=== PATIENT | female | born 1980 | race Caucasian/White ===

== ENCOUNTER 2020-07-13 06:45 | Day surgery (SDC) | payer OTHER, BC ==
[2020-07-10 11:05] LABS: BASOPHILS 0.4 % (0-2); EOSINOPHILS 1.4 % (0-7); HEMATOCRIT 38.1 % (36.0-48.0); IMMATURE GRANULOCYTES 0.4 % (0-5); LYMPHOCYTE ABS# 1.66 10x3/uL (1.18-3.74); LYMPHOCYTES 19.6 % (15-50); MCH 29.1 pg (26.0-34.0); MCHC 34.1 g/dL (31.0-37.0); MCV 85.2 fL (80.0-100.0); MEAN PLATELET VOLUME 10.5 fL (7.4-10.4); MONOCYTES 6.3 % (2-11); NEUTROPHIL ABS# 6.11 10x3/uL (1.56-6.13); NEUTROPHILS 71.9 % (40-80); PLATELET COUNT 318 10x3/uL (130-400); RBC 4.47 10x6/uL (4.00-5.40); RDW 12.8 % (11.5-14.5); WBC 8.5 10x3/uL (4.8-10.8)
[~2020-07-13] VITALS: Ht 167.6 cm; Wt 63.5 kg
[2020-07-13 07:17] VITALS: BP 115/70; Ht 167.6 cm; Wt 63.5 kg
[2020-07-13 07:38] LABS: HCG URINE NEGATIVE (NEGATIVE)
--- NOTE | 2020-07-13 11:09 | NUR ---
1100 MORE AWAKE AND EATING JELLO. AT BEDSIDE
--- NOTE | 2020-07-13 11:40 | NUR ---
1120 IV REMOVED AND PRESSURE HELD, INSTRUCTIONS GIVEN.
--- NOTE | 2020-07-14 13:47 | OP ---
PATIENT NAME: REBECCA ALVARADO MEDICAL RECORD: [id number] :84 LOCATION:D.OPS ADMISSION DATE: SURGEON: BRIGIDA MARTINEZ DO DATE OF OPERATION: 07/13/2020 PREOPERATIVE DIAGNOSIS: Abnormal uterine bleeding. POSTOPERATIVE DIAGNOSIS: Abnormal uterine bleeding. PRIMARY SURGEON: Brigida Martinez DO ANESTHESIA: LMA. PROCEDURE: Hysteroscopy, D&C. FINDINGS: Grossly normal endometrium. Moderate amount of tissue. Uterus sounded to 8cm. SPECIMENS: Endometrial curettings. ESTIMATED BLOOD LOSS: 10 cc. IV FLUIDS: Per anesthesia. INFECTION PROPHYLAXIS: Betadine vaginal prep and 1 gram Ancef. COMPLICATIONS: None. In office, the patient was counseled on risks and benefits of surgery including bleeding, pain, infection, damage to surrounding structures, perforation. The patient expressed understanding and signed consents in the office and then preoperatively. DESCRIPTION OF PROCEDURE: The patient was taken to the OR where anesthesia was administered and found to be adequate. She was prepped and draped in normal sterile fashion in dorsal lithotomy position with Gokul stirrups. Speculum was placed in the vagina. Anterior lip of the cervix was grasped with a tenaculum. The uterus was sounded to 8 cm and then patient's cervix was sequentially dilated. Hysteroscope was inserted and exploration of cavity done, no large polyps seen. Hysteroscope removed and then small sharp curette was introduced. Curettage performed in a clockwise fashion until a gritty feeling was noted. Tissue sent to pathology. Curette removed and tenaculum removed. Silver nitrate used for hemostasis at the tenaculum site. Hemostasis appropriate. Speculum was removed. All instrument, lap, and sponge counts were correct x2 and the patient was awakened and taken to recovery room in stable condition. TRANSINT:[id number] Voice Confirmation ID: [id number] DOCUMENT ID: [id number] 07/14/2020 Edited pre/postop dx per Dr. Martinez, take away attendant error, dmm. OPERATIVE REPORT [id number] SOPHIA ALVARADOJOSE GUADALUPE Abiodun BRIGIDA MARTINEZ DO at 1347 CC: [id number] DICTATION DATE: 07/13/20 1015 SUPERVISORY CLERK: 07/13/20 1054 [facility] 07/13/20 [facility] [address] [facility] [address]
== END 2020-07-13 12:40 | disposition home or self-care (01) ==
LOC: D.OPS 06:45
PROVIDERS: ATTEND Obstetrics & Gynecology
DX: N93.9 Abnormal uterine and vaginal bleeding, unspecified (principal); N92.0 Excessive and frequent menstruation with regular cycle; D25.9 Leiomyoma of uterus, unspecified